=== PATIENT | female | born 1970 | race Caucasian/White ===

== ENCOUNTER 2016-08-08 11:49 | Emergency (ER) | payer OTHER ==
[~2016-08-08] VITALS: Ht 167.6 cm; Wt 105.7 kg
[~2016-08-08 11:49] MED LIST: ADULT LOW DOSE81 M1 PO; CEFDINIR300 MG PO; DIFLUCAN150 MG PO; FIORICET 50-301 EACH PO; FORTAMET1000 M1 PO; GLUCOPHAGE1000 MG PO; HUMULIN 70100 UNIT/2 SQ; HYDROCODON-ACE1 EAC7 PO; KEFLEX500 MG PO; LEVEMIR FL100 UNIT/1 SC; MOTRIN800 MG PO; MULTIVITAMIN PO; MULTIVITAMIN1 EAC2 PO; NAPROSYN500 MG PO; NOVOLIN N100 UNITS/ SC; NOVOLIN,HU100 UNITS1 SC; NOVOLOG PE100 UNITS/ SC; NovoLIN N (NPH),Humu SC; PERCOCET 5/31 TABLET PO; Protonix PO; SIMVASTATIN80 MG PO; TORADOL10 MG PO; ZESTRIL5 MG PO
[2016-08-08 12:44] LABS: HEMATOCRIT 43.9 % (36.0-46.0); MCHC 34.9 G/DL (30.0-36.0); MCV 91.8 FL (83-99); MEAN PLAT.VOLUME 11.2 uM^3 (9.5-12.4); PLATELET COUNT 211 K/uL (156-360); RBC DIS.WIDTH-CV 12.9 % (11.8-14.6); RBC DIS.WIDTH-SD 42.3 % (39-53); RED BLOOD COUNT 4.78 M/uL (3.80-5.20); WHITE BLOOD COUNT 4.6 K/uL (4.1-10.2)
[2016-08-08 12:56] LABS: CHLORIDE 106 mEq/L (99-109); POTASSIUM 3.7 mEq/L (3.7-5.4); SODIUM 138 mEq/L (136-147)
[2016-08-08 12:58] LABS: GLUCOSE 166 mg/dL (70-99)
[2016-08-08 12:59] LABS: ANION GAP 11 MEQ/L (2-14)
[2016-08-08 13:00] LABS: TOTAL BILIRUBIN 0.4 mg/dL (0.0-1.0)
[2016-08-08 13:01] LABS: ALKALINE PHOSPHATASE 51 IU/L (3-129)
[2016-08-08 13:02] LABS: GFR ESTIMATE (CALCULATED) > 59 mL/min/
[2016-08-08 13:03] LABS: UREA NITROGEN (BUN) 11 mg/dL (9-23)
[2016-08-08 13:05] LABS: LIPASE 17 U/L (1.0-51.0)
[2016-08-08 13:07] LABS: ADD MIUA? YES; BILIRUBIN NEGATIVE; BLOOD NEGATIVE; COLOR YELLOW ((YELLOW)); GLUCOSE (STRIP) >=1000; KETONES NEGATIVE; LEUKOCYTES NEGATIVE; NITRITE NEGATIVE; PROTEIN (STRIP) TRACE; SPECIFIC GRAVITY 1.033 (1.000-1.030); UROBILINOGEN 0.2 MG/DL (0.2-1.0)
[2016-08-08 13:11] LABS: QUANTITATIVE HCG < 4.0 MIU/ML
[2016-08-08 13:28] LABS: EPITHELIAL CELLS 2+; RED BLOOD CELLS NONE SEEN /HPF (0-5); WHITE BLOOD CELLS NONE SEEN /HPF (0-5)
[2016-08-08 13:29] LABS: BACTERIA 1+; CASTS NONE SEEN /LPF; CRYSTALS NONE SEEN; MUCUS NONE SEEN; UCUL ADDED? NO
[2016-08-08] MEDS ORDERED: BIOTIN 5000MCG PO (14:47)
[2016-08-08] MEDS ORDERED: B-122500 MC1 SL (14:48)
[2016-08-08] MEDS ORDERED: ZOFRAN ODT4 MG PO (16:50)
[2016-08-08] MEDS ORDERED: INDOCIN25 MG PO (16:50)
[2016-08-08 17:21] VITALS: BP 133/86
== END 2016-08-08 17:24 | disposition home or self-care (01) ==
LOC: EME 11:49
DX: R10.9 Unspecified abdominal pain (principal); M54.5 Low back pain; R94.5 Abnormal results of liver function studies; E86.0 Dehydration; E11.9 Type 2 diabetes mellitus without complications; E78.5 Hyperlipidemia, unspecified; Z79.82 Long term (current) use of aspirin; Z79.4 Long term (current) use of insulin; Z87.891 Personal history of nicotine dependence
CPT/HCPCS: 74176; 80053; 81003; 83690; 84702; 85027; 99281; 99285; J1885

== ENCOUNTER 2016-12-13 09:00 | Emergency (ER) | payer OTHER ==
[~2016-12-13] VITALS: Ht 167.6 cm; Wt 104.9 kg
[~2016-12-13 09:00] MED LIST changes: +B-122500 MC1 SL; +BIOTIN 5000MCG PO; +INDOCIN25 MG PO; +ZOFRAN ODT4 MG PO
[2016-12-13 09:57] LABS: HEMATOCRIT 45.7 % (36.0-46.0); MCH 32.2 PG (29.0-34.0); MCHC 34.4 G/DL (30.0-36.0); MCV 93.8 FL (83-99); MEAN PLAT.VOLUME 10.7 uM^3 (9.5-12.4); PLATELET COUNT 189 K/uL (156-360); RBC DIS.WIDTH-CV 12.6 % (11.8-14.6); RBC DIS.WIDTH-SD 43.3 % (39-53); RED BLOOD COUNT 4.87 M/uL (3.80-5.20); WHITE BLOOD COUNT 3.5 K/uL (4.1-10.2)
[2016-12-13 10:10] LABS: CHLORIDE 103 mEq/L (99-109); POTASSIUM 3.8 mEq/L (3.7-5.4); SODIUM 139 mEq/L (136-147)
[2016-12-13 10:13] LABS: GLUCOSE 209 mg/dL (70-99)
[2016-12-13 10:14] LABS: ANION GAP 11 MEQ/L (2-14)
[2016-12-13 10:15] LABS: TOTAL BILIRUBIN 0.6 mg/dL (0.0-1.0)
[2016-12-13 10:16] LABS: ALKALINE PHOSPHATASE 50 IU/L (3-129); GFR ESTIMATE (CALCULATED) > 59 mL/min/
[2016-12-13 10:17] LABS: UREA NITROGEN (BUN) 9 mg/dL (9-23)
[2016-12-13 10:20] LABS: LIPASE 20 U/L (1.0-51.0)
[2016-12-13 10:29] LABS: QUANTITATIVE HCG < 4.0 MIU/ML
[2016-12-13 10:30] LABS: TROP-I INTERPRETATION NEGATIVE; TROPONIN-I < 0.01 ng/mL (0.0-0.30)
[2016-12-13 11:24] LABS: ADD MIUA? YES; BILIRUBIN NEGATIVE; BLOOD LARGE; COLOR AMBER ((YELLOW)); GLUCOSE (STRIP) >=500; KETONES NEGATIVE; LEUKOCYTES NEGATIVE; NITRITE NEGATIVE; PROTEIN (STRIP) 30; SPECIFIC GRAVITY 1.032 (1.000-1.030); UROBILINOGEN 0.2 MG/DL (0.2-1.0)
[2016-12-13 11:29] LABS: BACTERIA NONE SEEN /HPF; EPITHELIAL CELLS 1+ /HPF; MUCUS TRACE /LPF; RED BLOOD CELLS NONE SEEN /HPF (0-5); UCUL ADDED? NO; WHITE BLOOD CELLS NONE SEEN /HPF (0-5)
[2016-12-13 11:58] VITALS: BP 148/92
== END 2016-12-13 11:59 | disposition left against medical advice (07) ==
LOC: EME 09:00
PROVIDERS: Nurse Practitioner Family
DX: R10.11 Right upper quadrant pain (principal); E11.9 Type 2 diabetes mellitus without complications; Z79.82 Long term (current) use of aspirin; Z79.4 Long term (current) use of insulin; E78.5 Hyperlipidemia, unspecified; Z79.84 Long term (current) use of oral hypoglycemic drugs; Z87.891 Personal history of nicotine dependence
CPT/HCPCS: 76705; 80053; 81003; 83690; 84484; 84702; 85027; 93005; 99281; 99284

== ENCOUNTER 2017-05-13 12:59 | Emergency (ER) | payer OTHER ==
[~2017-05-13] VITALS: Ht 167.6 cm; Wt 101.7 kg
[2017-05-13] MEDS ORDERED: PREDNISONE10 MG PO (16:02)
[2017-05-13 16:35] VITALS: BP 145/85
== END 2017-05-13 16:35 | disposition home or self-care (01) ==
LOC: EME 12:59
DX: M25.551 Pain in right hip (principal); E11.9 Type 2 diabetes mellitus without complications; Z79.4 Long term (current) use of insulin; E78.5 Hyperlipidemia, unspecified; Z87.891 Personal history of nicotine dependence
CPT/HCPCS: 73502; 99281; 99283; J1885